=== PATIENT | male | born 1950 | race Caucasian/White ===

== ENCOUNTER → 2024-11-05 15:38 | Outpatient (REF) | payer MEDICARE, OTHER, SELFPAY | LOC: RAD 15:38 | PROVIDERS: ATTENDING PHYSICIAN Family Medicine | DX: R05.1 Acute cough (principal) | CPT/HCPCS: 71046 ==

== ENCOUNTER → 2024-12-08 14:35 | Outpatient (REF) | payer MEDICARE, OTHER, SELFPAY | LOC: RAD 14:35 | PROVIDERS: ATTENDING PHYSICIAN Specialist; FAMILY PHYSICIAN Family Medicine | DX: R31.0 Gross hematuria (principal) | CPT/HCPCS: 74178; Q9967 ==

== ENCOUNTER → 2025-01-27 16:53 | Outpatient (REF) | payer MEDICARE, OTHER, SELFPAY | LOC: RAD 16:53 | PROVIDERS: ATTENDING PHYSICIAN Family Medicine | DX: J18.9 Pneumonia, unspecified organism (principal) | CPT/HCPCS: 71046 ==

== ENCOUNTER → 2025-08-27 10:24 | Outpatient (REF) | payer MEDICARE, OTHER, SELFPAY | LOC: HWRCS 10:24 | PROVIDERS: ATTENDING PHYSICIAN Internal Medicine Cardiovascular Disease; FAMILY PHYSICIAN Family Medicine | DX: I48.92 Unspecified atrial flutter (principal) | CPT/HCPCS: 93306 ==

== ENCOUNTER 2025-08-30 18:53 | Observation (INO) | payer MEDICARE, OTHER, SELFPAY ==
[2025-08-30] VITALS (8 sets, daily range): BP systolic 128–152; BP diastolic 72–89; BMI 29.7; BMI 28.5
[2025-08-30 12:13] LABS: Hematocrit 35.7 % (39.0-52.0); Hemoglobin 12.4 g/dL (13.0-18.0); Mean Corp Hgb Conc. 34.7 g/dL (33.0-37.0); Mean Corpuscular Volume 94.9 fL (80.0-94.0); Nucleated Red Blood Cells % 0 % (-); Platelet Count 161 10^3/uL (130-400); Red Cell Dist. Width 12.6 % (11.5-14.5)
[2025-08-30 12:27] LABS: Blood Urea Nitrogen 18 mg/dl (9-20); Calcium 9.0 mg/dl (8.4-10.2); Carbon Dioxide 25 mmol/L (22-30); Chloride 104 mmol/L (98-107); Estimated Creatinine Clearance 79 ml/min; Glucose 99 mg/dl (70-99); Potassium 4.2 mmol/L (3.5-5.1); Sodium 134 mmol/L (135-145); eGFR > 60.00
--- NOTE | 2025-08-30 12:45 | ED.CVA ---
History of Present Illness
<Sunshine Carvalho PA-C - Last Filed: 08/31/25 08:07>
General
Chief Complaint: CVA/TIA Symptoms
Time Seen by Provider: 08/30/25 11:09
Onset of Stroke Symptoms
Onset of symptoms known: Yes
Date of onset of symptoms: 08/30/25
Time of onset of symptoms: 08:00
History of Present Illness
History of Present Illness:
Nelson is a 74-year-old male with past medical history of GERD, A-fib on anticoagulation due to retinal detachment on Eliquis who presents after experiencing 15 minutes of feeling like his was not connected to his body and being unable to feel self
tap his arm against the wall. Reports that loss of sensation was only from the wrist to the elbow but otherwise remained intact. Symptoms improved without any intervention after 15 minutes. Currently feels at baseline.
Past History
<Sunshine Carvalho PA-C - Last Filed: 08/31/25 08:07>
Past History
ED Past Medical History: CAD, GERD and IA
ED Past Surgical History: Cardiac, Orthopedic and Urological (Orchiectomy)
Social History
Tobacco: Former smoker
Personal:
Living: with family
Employment: Employed
Phy Exam
<Sunshine Carvalho PA-C - Last Filed: 08/31/25 08:07>
General Physical Exam
General Presentation: well appearing and no apparent distress
General Skin: warm and dry
General Habitus: normal
General Mental: alert
General Hydration: appears well hydrated
ENT Exam
ENT Exam: EOMI, pharynx normal, neck supple and normocephalic
Eye Exam
Eye Exam: PERRL, cornea clear and conjunctiva normal
Cardiovascular Exam
Cardiovascular Exam: regular rate/rhythm, no edema, no murmur and normal peripheral pulses
Pulmonary Exam
Pulmonary Exam: lungs clear, no respiratory distress, no rales, no crackles, no rhonchi, no stridor, no wheezing and no cough
Gastrointestinal Exam
Gastrointestinal Exam: normal bowel sounds, non tender, soft, no organomegaly, no pulsatile mass and non distended
Neurological Exam
Neurological Exam: alert, oriented x3, no motor deficits and speech normal
Musculoskeletal Exam
Musculoskeletal Exam: full ROM and no edema
Skin Exam
Skin Exam: normal color, warm/dry, no rash and no petechia
Psychiatric Exam
Psychiatric Exam: normal mood/affect
Scores
<Sunshine Carvalho PA-C - Last Filed: 08/31/25 08:07>
NIH Stroke Score
Level of Consciousness: 0 - Alert
LOC Questions: 0-Answers both correctly
LOC Commands: 0-Performs both correctly
Best Horizontal Gaze: 0-Normal
Visual Larsen: 0=Normal, no visual loss
Facial Palsy: 0=Normal, symmetrical
Motor - Right Arm: 0=No drift 10 seconds
Motor - Left Arm: 0=No drift 10 seconds
Motor - Right Le-No drift 5 seconds
Motor - Left Le-No drift 5 seconds
Limb Ataxia: 0-Absent
Sensation: 0-Normal
Best Language: 0-No aphasia
Dysarthria: 0-Normal
Extinction and Inattention: 0-No abnormality
NIH Total Score:: 0
<Matthew Fuller PA-C - Last Filed: 08/30/25 17:02>
NIH Stroke Score
NIH Total Score:: 0
Course
<Sunshine Carvalho PA-C - Last Filed: 08/31/25 08:07>
Orders/Labs/Results
Orders:
Orders
08/30/25 11:24
CT Head & Neck Angio W/wo IV Urgent
Comment:
Reason For Exam: ataxia prior to arrival
08/30/25 12:00
BMP [Basic Metabolic Panel] Urgent
Complete Blood Count/With Diff Urgent
08/30/25 14:56
Electrocardiogram (*1) Urgent
Reason for Study: Atrial Fibrillation
EKG- Treatment ONCE
08/30/25 16:58
Aspirin 325 mg PO NOW STA
Clopidogrel Bisulfate [Plavix] 300 mg PO NOW STA
08/30/25 18:19
Admit/Transfer Patient As Directed
Co-Sign Provider:
Level of Care: Observation services
Assign to:: Telemetry
Physician / Group: Esvin Smith
Diagnosis: decreased sensation to right arm and hand, CVA/TIA
Reason for Telemetry: CVA/TIA
Date to Stop Telemetry: 09/02/25
Time to Stop Telemetry: 11:00
PRN Pain Medication Management As Directed
May give lesser potent ordered pain med per pt: Yes
preference::
Protocol:: Medication orders for pain may be administered in a
manner that supports deferring to patient preference
when the pt is:
- Requesting an ordered lesser potent pain medication.
Least to most potent pain medications are defined
as: acetaminophen < NSAID < tramadol < opioids
(morphine, oxycodone, hydromorphone).
- Requesting a lesser dose of the same medication IF
ORDERED.
- Requesting a less intrusive route of administration
if both routes are prescribed by the provider (PO <
IV).
08/30/25 18:20
Code Status As Directed
Resuscitation Status: Full Code
08/30/25 20:44
Acetaminophen [Tylenol/Feverall] 650 mg RECTAL Q4HPRN PRN
Acetaminophen [Tylenol] 650 mg PO Q4HPRN PRN
Metoprolol [Lopressor] 100 mg PO BID
08/30/25 20:44
Case Management Consult ONCE
Case Management Consult: Discharge Planning
Comment: stroke/tia
DIETARY IP CONSULT Routine
Reason for Consult: stroke/TIA
NEUROLOGY CONSULT Urgent
Consulting Provider: Flakito Obando
Was physician already notified: Yes
Real Estate Leasing Agent Urgent
Activity As Directed
Activity Level: Ambulate
NIH Stroke Scale As Directed
Directions: Per protocol
Comment: every shift and with any change in condition or mental status
Neurological Checks As Directed
Frequency: q4h
Additional Instructions:: q4h x 24h upon admission to the floor, then qshift & with any change in condition
and mental status
Patient Education As Directed
Type: Stroke education packet
Comment: provide to patient and family
Pneumatic Compression Sleeves As Directed
Type: Knee high
Swallow Screening CVA/TIA ONLY As Directed
Comment: NPO until swallowing screening completed
If patient FAILS swallow screening:: NPO, Speech Therapy consult, Aspiration Precautions
If patient PASSES swallow screening, diet:: Cholesterol Lowering
Above diet order entered?: Yes- passed screening
Vital Signs As Directed
Frequency: Per unit guidelines
Call for:: BP greater than 180/105 mmHg or less than 100/60 mmHg
Ot Eval And Treat Routine
Pt Eval And Treat Routine
Activity Level: Ambulate
Speech Therapy Eval & Treat Routine
DX Deep Vein Thrombosis Video Routine
08/30/25 22:23
Urinalysis Routine
Date Specimen was Collected: 08/30/25
Time Specimen was Collected: 22:22
08/31/25 06:35
Cardiovascular Evaluation IN AM
08/31/25 08:00
Aspirin Chewable [Low Strength Aspirin] 81 mg PO DAILY
Clopidogrel Bisulfate [Plavix] 75 mg PO DAILY
Diltiazem Extended Release [Cardizem Cd] 120 mg PO DAILY
Rosuvastatin Calcium [Crestor] 20 mg PO DAILY
09/02/25 11:00
DC Protocol for Telemetry ONCE
Abnormal Lab Results
08/30/25
12:00
RBC 3.76 L 10^6/uL
(4.70-6.10)
Hgb 12.4 L g/dL
(13.0-18.0)
Hct 35.7 L %
(39.0-52.0)
MCV 94.9 H fL
(80.0-94.0)
MCH 33.0 H pg
(27.0-31.0)
Absolute Monos (auto) 0.8 H 10^3/uL
(0.1-0.6)
Monocytes % 13.2 H %
(1.7-9.3)
Sodium 134 L mmol/L
(135-145)
08/30/25 12:00
08/30/25 12:00
Vital Signs
Initial and Last Documented VS:
Initial Vital Signs
Temp Pulse Resp BP Pulse Ox
36.5 C 69 18 136/77 98
08/30/25 10:14 08/30/25 10:14 08/30/25 10:14 08/30/25 10:14 08/30/25 10:14
Last Documented Vital Signs
Temp Pulse Resp BP Pulse Ox
36.7 C 78 16 121/78 99
08/31/25 03:39 08/31/25 07:57 08/31/25 03:39 08/31/25 07:57 08/31/25 03:39
<Matthew Fuller PA-C - Last Filed: 08/30/25 17:02>
Orders/Labs/Results
Orders:
Orders
08/30/25 11:24
CT Head & Neck Angio W/wo IV Urgent
Comment:
Reason For Exam: ataxia prior to arrival
08/30/25 12:00
BMP [Basic Metabolic Panel] Urgent
Complete Blood Count/With Diff Urgent
08/30/25 14:56
Electrocardiogram (*1) Urgent
Reason for Study: Atrial Fibrillation
EKG- Treatment ONCE
08/30/25 16:58
Aspirin 325 mg PO NOW STA
Clopidogrel Bisulfate [Plavix] 300 mg PO NOW STA
08/30/25 18:19
Admit/Transfer Patient As Directed
Co-Sign Provider:
Level of Care: Observation services
Assign to:: Telemetry
Physician / Group: Esvin Smith
Diagnosis: decreased sensation to right arm and hand, CVA/TIA
Reason for Telemetry: CVA/TIA
Date to Stop Telemetry: 09/02/25
Time to Stop Telemetry: 11:00
PRN Pain Medication Management As Directed
May give lesser potent ordered pain med per pt: Yes
preference::
Protocol:: Medication orders for pain may be administered in a
manner that supports deferring to patient preference
when the pt is:
- Requesting an ordered lesser potent pain medication.
Least to most potent pain medications are defined
as: acetaminophen < NSAID < tramadol < opioids
(morphine, oxycodone, hydromorphone).
- Requesting a lesser dose of the same medication IF
ORDERED.
- Requesting a less intrusive route of administration
if both routes are prescribed by the provider (PO <
IV).
08/30/25 18:20
Code Status As Directed
Resuscitation Status: Full Code
08/30/25 20:44
Acetaminophen [Tylenol/Feverall] 650 mg RECTAL Q4HPRN PRN
Acetaminophen [Tylenol] 650 mg PO Q4HPRN PRN
Metoprolol [Lopressor] 100 mg PO BID
08/30/25 20:44
Case Management Consult ONCE
Case Management Consult: Discharge Planning
Comment: stroke/tia
DIETARY IP CONSULT Routine
Reason for Consult: stroke/TIA
NEUROLOGY CONSULT Urgent
Consulting Provider: Flakito Obando
Was physician already notified: Yes
Real Estate Leasing Agent Urgent
Activity As Directed
Activity Level: Ambulate
NIH Stroke Scale As Directed
Directions: Per protocol
Comment: every shift and with any change in condition or mental status
Neurological Checks As Directed
Frequency: q4h
Additional Instructions:: q4h x 24h upon admission to the floor, then qshift & with any change in condition
and mental status
Patient Education As Directed
Type: Stroke education packet
Comment: provide to patient and family
Pneumatic Compression Sleeves As Directed
Type: Knee high
Swallow Screening CVA/TIA ONLY As Directed
Comment: NPO until swallowing screening completed
If patient FAILS swallow screening:: NPO, Speech Therapy consult, Aspiration Precautions
If patient PASSES swallow screening, diet:: Cholesterol Lowering
Above diet order entered?: Yes- passed screening
Vital Signs As Directed
Frequency: Per unit guidelines
Call for:: BP greater than 180/105 mmHg or less than 100/60 mmHg
Ot Eval And Treat Routine
Pt Eval And Treat Routine
Activity Level: Ambulate
Speech Therapy Eval & Treat Routine
DX Deep Vein Thrombosis Video Routine
08/30/25 22:23
Urinalysis Routine
Date Specimen was Collected: 08/30/25
Time Specimen was Collected: 22:22
08/31/25 06:35
Cardiovascular Evaluation IN AM
08/31/25 08:00
Aspirin Chewable [Low Strength Aspirin] 81 mg PO DAILY
Clopidogrel Bisulfate [Plavix] 75 mg PO DAILY
Diltiazem Extended Release [Cardizem Cd] 120 mg PO DAILY
Rosuvastatin Calcium [Crestor] 20 mg PO DAILY
09/02/25 11:00
DC Protocol for Telemetry ONCE
Abnormal Lab Results
08/30/25
12:00
RBC 3.76 L 10^6/uL
(4.70-6.10)
Hgb 12.4 L g/dL
(13.0-18.0)
Hct 35.7 L %
(39.0-52.0)
MCV 94.9 H fL
(80.0-94.0)
MCH 33.0 H pg
(27.0-31.0)
Absolute Monos (auto) 0.8 H 10^3/uL
(0.1-0.6)
Monocytes % 13.2 H %
(1.7-9.3)
Sodium 134 L mmol/L
(135-145)
08/30/25 12:00
08/30/25 12:00
Vital Signs
Initial and Last Documented VS:
Initial Vital Signs
Temp Pulse Resp BP Pulse Ox
36.5 C 69 18 136/77 98
08/30/25 10:14 08/30/25 10:14 08/30/25 10:14 08/30/25 10:14 08/30/25 10:14
Last Documented Vital Signs
Temp Pulse Resp BP Pulse Ox
36.7 C 78 16 121/78 99
08/31/25 03:39 08/31/25 07:57 08/31/25 03:39 08/31/25 07:57 08/31/25 03:39
<Sunshine Carvalho PA-C - Last Filed: 08/31/25 08:07>
MDM/Problems Addressed
Differential Diagnosis Includes:
Patient appears well on exam. NIH 0. However given concerning history will obtain CTA head and neck to rule out any abnormality. Patient is in A-fib on the monitor with a rate of 80. CBC and BMP unremarkable. CT angio head and neck obtained and
shows no evidence of CVA or hemodynamically significant stenosis. Case discussed with neurology who will come and evaluate the patient.
Patient signed out to aquiles PA pending neurology evaluation
<Sunshine Carvalho PA-C - Last Filed: 08/31/25 08:07>
*Pulse Oximetry
SaO2: 99
Oxygen Mode of Delivery: Room air
<Matthew Fuller PA-C - Last Filed: 08/30/25 17:02>
*Radiology
Radiology exam reviewed: radiology read reviewed
*Pulse Oximetry
Patient hypoxic: no
*Critical Care Note
Total Time (30-74mins, 75-104mins- exclusive of procedures): Not Applicable
<Matthew Fuller PA-C - Last Filed: 08/30/25 17:02>
Patient Management
Discussion with other providers: Hospitalist and [employer]
Escalation/DeEscalation of care consider admission/obs:
3 PM: Patient was received in signout pending neurology evaluation and disposition planning. Neurology came to the bedside and evaluated the patient, they would like patient admitted for MRI brain and cervical spine with and without contrast as
well as aspirin and Plavix load to be given for suspected TIA. I notified the hospitalist team who will admit.
ED Attending Note
<Sunshine Carvalho PA-C - Last Filed: 08/31/25 08:07>
-
Portions of this chart may have been created with voice recognition software.� Occasional wrong word or��sound alike� substitutions may have occurred due to the inherent limitations of voice recognition software.
Discharge Plan
Departure
Patient Disposition: Admit
Date of Disposition: 08/30/25
Time of Disposition: 16:59
Presentation/result/management discussed w/ accepting MD/DO: Hospitalist
Discharge Problem:
TIA (transient ischemic attack)
Interventions
Interventions:
*General Assessment Last Done: 08/30/25 10:14
*Neglect/Abuse Screening Last Done: 08/30/25 14:40
*ED COVID-19 Vaccine History Last Done: 08/30/25 10:14
*ED Influenza Vaccine History Last Done: 08/30/25 10:14
[facility] Fall Risk Assessment Tool Last Done: 08/30/25 12:03
*Risk Screen - Suicide (C-SSRS) Last Done: 08/30/25 10:14
*Nursing Disposition Last Done: 08/30/25 21:05
ED- Pulmonary Assessment Last Done: 08/30/25 12:04
ED- Neurological Assessment Last Done: 08/30/25 13:10
ED- Cardiac Assessment Last Done: 08/30/25 12:04
ED Swallowing Screen Last Done: 08/30/25 16:52
Discharge Date and Time
Discharge Date/Time: 08/30/25 21:05
--- NOTE | 2025-08-30 15:37 | CON.NEURO4 ---
Consultation - Neurology 4
-
CONSULTING PHYSICIAN: Dr. Flakito Obando
REFERRING PHYSICIAN: Debra LLOYD
DICTATED BY: Dr. Flakito Obando
DATE/TIME OF REQUEST: 08/30/2025
DATE/TIME OF CONSULTATION: 08/30/2025
Reason for Consultation: Transient ischemic attack
ASSESSMENT AND PLAN:
Patient is a 74-year-old male with past medical history significant for ASCVD, essential hypertension, hyperlipidemia, paroxysmal atrial fibrillation (not on anticoagulation) and GERD who presented to [facility] ED for evaluation of decreased sensation of
right arm.
. CT of the head did not show any acute intracranial abnormality.
. CTA of the head did not show a large vessel occlusion.
The patient was not on any antiplatelet at home.
The patient was not a candidate for TNK as his symptoms had resolved.
The patient likely had a transient ischemic attack given the history of paroxysmal atrial fibrillation and not being on anticoagulation due to the risk of retinal attachment as per patient's . The patient is going to be on the stroke pathway
and he is going to be on aspirin 81 mg daily and Plavix 75 mg daily. The patient was given 325 mg aspirin x 1 and 300 mg of Plavix x 1. The plan is to get MRI of the brain without contrast and echocardiogram.
History of Present Illness:
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 He noted that he felt the arm/hand would not 'complete what he wanted it too.' He notified of new onset complaint and noticed that when he touched counter top with right
hand it felt 10 degrees colder than it did with the left. He denies any numbness, tingling, dizziness, vision changes, ambulatory dysfunction, slurred speech, facial droop or difficulty word finding.
Past Medical History:
ASCVD
essential hypertension
hyperlipidemia
paroxysmal atrial fibrillation
GERD
sick sinus syndrome
Hx malignant neoplasm of prostate
Review of Systems:
The 10 point review of system was negative aside from as given the above history of present illness.
Neurologic Examination:
Alert and oriented x 3
The cranial nerves II to XII are grossly intact
The speech is clear
The motor strength is grossly 5/5 bilaterally
The sensations are intact bilaterally
There is no limb ataxia seen.
Vital Signs and Labs
-
Vital Signs and Labs:
Vital Signs
Temp Pulse Resp BP Pulse Ox
36.5 C 77 22 146/85 99
08/30/25 10:14 08/30/25 18:30 08/30/25 18:30 08/30/25 18:00 08/30/25 18:15
Lab Results
08/30/25 12:00
08/30/25 12:00
Sodium 134 mmol/L (135-145) L 08/30/25 12:00
Potassium 4.2 mmol/L (3.5-5.1) 08/30/25 12:00
BUN 18 mg/dl (9-20) 08/30/25 12:00
Glucose 99 mg/dl (70-99) 08/30/25 12:00
Calcium 9.0 mg/dl (8.4-10.2) 08/30/25 12:00
Medications
-
Home Medications
�Medication �Instructions �Recorded
Selenimin 2 t PO DAILY Supplement 08/22/09
aspirin 81 mg tablet 81 mg PO DAILY Heart 08/30/25
Disease/Condition
coenzyme Q10 100 mg capsule 200 mg PO DAILY Supplement 08/30/25
diltiazem HCl 120 mg 120 mg PO DAILY 08/30/25
capsule,extended release 24 hr,
controlled
metoprolol tartrate 100 mg tablet 100 mg PO BID Blood Pressure 08/30/25
rosuvastatin 20 mg tablet 20 mg PO DAILY High Cholesterol 08/30/25
vitamin B complex 1 tab PO DAILY Supplement 08/30/25
vitamin E mixed 1,000 unit capsule 1,000 unit PO DAILY Supplement 08/30/25
[2025-08-30] MEDS: ASPIRIN 325 MG PO (17:09)
[2025-08-30] MEDS: PLAVIX 300 MG PO (17:09)
--- NOTE | 2025-08-30 17:32 | HPS.HSE ---
Family Physician
-
Family Physician: Shelia Ramirez
Chief Complaint
-
decreased sensation or right arm
History of Present Illness
Patient is a 74-year-old male with past medical history significant for ASCVD, essential hypertension, hyperlipidemia, paroxysmal atrial fibrillation and GERD who presented to [facility] ED for evaluation of decreased sensation or right arm. Patient
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 He noted that he felt the arm/hand would not 'complete what he wanted it too.' He was able to complete emptying mold sprayer with use
of hand/arm with the lack of sensation. He notified of new onset complaint and noticed that when he touched counter top with right hand it felt 10 degrees colder than it did with the left. He denies any numbness, tingling, dizziness, vision
changes, ambulatory dysfunction, slurred speech, facial droop or difficulty word finding. He notified his primary care and [employer] Merchandiser who both recommended ED for TIA workup.
Medical History
Past Medical History
Past Medical History: Reports Other
Additional Past Medical History:
ASCVD
essential hypertension
hyperlipidemia
paroxysmal atrial fibrillation
GERD
sick sinus syndrome
Hx malignant neoplasm of prostate
Past Surgical History: Reports Other
Additional Past Surgical History:
Back surgery
tonsillectomy
Testicle Partial Removal
Detached Retina
cardiac pacemaker
Social History
Tobacco: Non-smoker
Alcohol: Daily (1-2 glasses of wine )
Drug: None
Personal:
Living: With Family
Employment: Employed
Family History
Family History: Not pertinent
Allergies / Home Medications
Allergies reflects when Allergies were last updated in [facility].
Home Medications with original date entered in [facility]
Allergy/Medication List:
Allergies
Allergy/AdvReac Type Severity Reaction Status Date / Time
Sulfa (Sulfonamide Allergy Unknown Verified 08/30/25 10:18
Antibiotics)
Home Medications
Selenimin 2 t PO DAILY Supplement 08/22/09
aspirin 81 mg tablet 81 mg PO DAILY Heart Disease/Condition 08/30/25
coenzyme Q10 100 mg capsule 200 mg PO DAILY Supplement 08/30/25
diltiazem HCl 120 mg capsule,extended release 24 hr, controlled 120 mg PO DAILY 08/30/25
metoprolol tartrate 100 mg tablet 100 mg PO BID Blood Pressure 08/30/25
rosuvastatin 20 mg tablet 20 mg PO DAILY High Cholesterol 08/30/25
vitamin B complex 1 tab PO DAILY Supplement 08/30/25
vitamin E mixed 1,000 unit capsule 1,000 unit PO DAILY Supplement 08/30/25
Review of Systems
-
History Source: Patient
Constitutional: Denies Weight Gain or Chills
EENT: Denies Sore Throat
Respiratory: Denies Cough, Hemoptysis or Trouble Breathing
Cardiac: Denies Chest Pain, Diaphoresis, Palpitations or Syncope
Abdomen/GI: Denies Abdominal Pain, Nausea, Vomiting or Diarrhea
: Denies Dysuria, Frequency or Urgency
Musculoskeletal: Reports Other (decreased sensation in right arm and hand); Denies Joint Pain or Joint Swelling
Skin: Denies Rash
Neurological: Denies Dizzy, Headache, Weakness or Numbness
Physical Exam
Vital Signs
Vital Signs
Temp Pulse Resp BP Pulse Ox
97.7 F 76 10 146/88 99
08/30/25 10:14 08/30/25 16:45 08/30/25 16:45 08/30/25 16:14 08/30/25 16:45
Physical Exam
General: Well Developed, Well Nourished, No Apparent Distress, Comfortable, Conversant and Obese
HEENT: NormoCephalic, Moist mucous membranes, PERRLA, Nose Appears Normal and Ears Appear Normal
Respiratory: Clear and Non Labored Respirations; No Wheezes, Rales or Rhonchi
Cardiac: S1/S2 and Regular Rhythm; No Murmur, Rub, Gallop or Peripheral Edema
GI: Soft, Non Tender, Non Distended and Normal Bowel Sounds
Musculoskeletal: No Clubbing, No Cyanosis and No Edema
Skin: Warm and IV/Catheter Site
Neuro: Awake, AO x 3, No Motor Deficits, Nonfocal/grossly intact, Cranial Nerves Intact (II-XII) and No Sensory Deficits; No Slurred Speech, Facial Droop, Tremors or Sedated
Psych: Calm and Intact Judgment/Insight
Laboratory Results
-
08/30/25 12:00
08/30/25 12:00
Data Reviewed
-
CT Scan: Report Reviewed by me (Head/Neck CTA: Bilateral nonhemodynamically significant internal carotid atherosclerotic narrowing. No findings to suggest internal carotid artery or vertebral artery dissection bilaterally. No significant proximal
intracranial arterial stenosis bilaterally.)
Lab Data: Labs Reviewed by me
Impression/Plan
-
IMPRESSION/PLAN:
#decreased sensation to right arm and hand 2/2 CVA/TIA vs. injury
acute onset of inability to sense right arm and hand
labs unremarkable
EKG: ATRIAL FLUTTER WITH VARIABLE A-V BLOCK WITH OCCASIONAL ventricular-paced complexes AND WITH PREMATURE VENTRICULAR OR ABERRANTLY CONDUCTED COMPLEXES
CANNOT RULE OUT INFERIOR INFARCT , AGE UNDETERMINED
Head/Neck CTA: Bilateral nonhemodynamically significant internal carotid atherosclerotic narrowing.
No findings to suggest internal carotid artery or vertebral artery dissection bilaterally.
No significant proximal intracranial arterial stenosis bilaterally.
- Admit to telemetry for observation
- Consult Neurology
- MRI brain and c-spine w/ and w/out contrast per Neurology
- NIH and neurochecks per protocol
#ASCVD
- continue aspirin
#essential hypertension
- continue metoprolol
#hyperlipidemia
- continue rosuvastatin
#paroxysmal atrial fibrillation
- continue diltiazem and metoprolol
- continue Eliquis
#sick sinus syndrome
s/p pacemaker
#Hx malignant neoplasm of prostate
s/p radiation
Code status: Full code
DVT prophylaxis: SCDs
--- NOTE | 2025-08-30 18:03 | W.PN.UPDATE ---
Update Note
Progress Note Update
This note serves as an addendum to the H&P by radio broadcaster Lelo Allan
HPI
74F HX Prx AF, on ASA, no longer on Eliquis due to retinal detachment
- seen at ER for experiencing 15 minutes of feeling like his was not connected to his body and being unable to feel self tap his arm against the wall.
- loss of sensation was only from the wrist to the elbow but otherwise remained intact.
- Symptoms improved without any intervention after 15 minutes.
- Currently feels at baseline.
Relevant VS
Temp Pulse Resp BP Pulse Ox
97.7 F 76 10 146/88 99
08/30/25 10:14 08/30/25 16:45 08/30/25 16:45 08/30/25 16:14 08/30/25 16:45
PE
Gen: NAD
HEENT: symmetric face , war coorective glass , fluent speech
Neck: supple
Lungs: CTA
Cor: irregular
Abdomen:�beneign
SENIOR INFRASTRUCTURE ENGINEER: NFND
MS: no edema
Relevant data�
08/30/25
12:00
WBC 6.4
Hgb 12.4 L
Plt Count 161
Sodium 134 L
BUN 18
Creatinine 0.9
eGFR > 60.00
H & N CTA
Bilateral nonhemodynamically significant internal carotid atherosclerotic narrowing.
No findings to suggest internal carotid artery or vertebral artery dissection bilaterally.
No significant proximal intracranial arterial stenosis bilaterally.
NO Prior hospitalist admission:
ASSESSMENT & PLAN
Pending Rx reconciliation
Subjective functional loss Rt Hand descibed as Rt chioma is not doing waht he wants to d but he did not drop objects
transient RUE weakness and inability to ROM.
R hand dominant
- s/p DAPL at ER - will cont
- MRI Brain and Cervical spine with and without contrast. ( has PPM)
- Neuro consulted
Persistent A Flutter
PPM implant
- await MRI alyssa for PPM compatibility
- cannot have Eliquis to Lt eye retina detachment
- on Metoprolol and Diltiazem
DVT Px: SCD
Full code
OBS TLM
[2025-08-30] MEDS: LOPRESSOR 100 MG PO (21:35)
[2025-08-30 22:31] LABS: Urine Character Clear (Clear)
[2025-08-30 22:37] LABS: INR 1.24; PT 15.7 Sec (11.4-14.6)
[2025-08-30 22:40] LABS: APTT 28.3 Sec (23.4-35.0)
[2025-08-30 22:54] LABS: Troponin I < 0.012 ng/ml
[2025-08-31 03:39] VITALS: BP 130/79
[2025-08-31 07:00] VITALS: BP 121/78
[2025-08-31 07:51] LABS: HDL Cholesterol 47 mg/dl; LDL Cholesterol, Calculated 54 mg/dl; Very Low Density Lipoprotein 22 mg/dl (0-30)
[2025-08-31] MEDS: CRESTOR 20 MG PO (07:57)
[2025-08-31] MEDS: LOW STRENGTH ASPIRIN 81 MG PO (07:57)
[2025-08-31] MEDS: CARDIZEM CD 120 MG PO (07:57)
[2025-08-31] MEDS: LOPRESSOR 100 MG PO (07:57)
[2025-08-31 08:51] LABS: Glycohemoglobin (HgbA1c) 5.9 % (4.0-5.9)
--- NOTE | 2025-08-31 08:53 | PTOTSP ---
Speech Therapy Evaluation:
Pt with acute risk factor for dysphagia including concern for TIA/CVA, however oropharyngeal swallow appeared functional at bedside. No overt s/sx of aspiration, WBC WNL, pt on room air, passed 3oz swallow screen, and without dysphagia hx.
Recommend:
1. Cont. regular solids and thin liquids
2. Meds as tolerated
3. General aspiration and reflux precautions
4. ENGINEER AUTOMATED EQUIPMENT to follow, pending results of MRI to determine if further intervention warranted
--- NOTE | 2025-08-31 09:54 | W.PN.NEURO.1 ---
Addendum entered and electronically signed by Flakito Obando MD 08/31/25 16:51:
The patient was seen and examined along with the nurse practitioner Lula Hart and I agree with her assessment and management plan. Given below is my addendum.
The patient likely had a transient ischemic attack, given the history of paroxysmal atrial fibrillation and not being on anticoagulation due to the risk of retinal detachment as per patient's . The patient is going to be on aspirin 81 mg daily.
The patient refused to take Plavix and he does not want to be on anticoagulation also.
. MRI of the brain does not show any acute infarct.
The patient is refusing to take Plavix and also he does not want to be on anticoagulation because he thinks that it will increase the risk of retinal detachment that he has had in the past.
The patient is recommended to see a prisoner classification interviewer for the Watchman device procedure.
Neurologically the patient is well.
The patient likely had a TIA.
He will go home on aspirin 81 mg daily.
Rosuvastatin 20 mg daily.
Follow-up in neurology clinic in 4 weeks.
I discussed the patient's assessment and plan with the patient and his , and they verbalized understanding of our discussion.
Discussed with Dr. River Valencia.
Original Note:
Today's Communication / Plan
-
-check MRI brain without contrast to evaluate for stroke
-check MRI cervical spine
-patient refusing anticoagulation and plavix, continue aspirin for now, if MRI shows new stroke will need anticoagulation
-goal LDL <70, current LDL 54 continue rosuvastatin 20 mg daily
-PT/OT/ST evaluations
-DVT prophylaxis
-continue neurochecks and NIHSS per unit guidelines
-stroke education packet
Neuro Assessment/Plan
Assessment
Patient is a 74-year-old male with past medical history significant for ASCVD, essential hypertension, hyperlipidemia, paroxysmal atrial fibrillation (not on anticoagulation) and GERD who presented to [facility] ED for evaluation of decreased sensation of
right arm.
Head/neck CTA 08/30/2025: Bilateral nonhemodynamically significant internal carotid atherosclerotic narrowing. No findings to suggest internal carotid artery or vertebral artery dissection bilaterally. No significant proximal intracranial arterial
stenosis bilaterally.
Labs: Hgb A1C 5.9, LDL 54
Plan
-check MRI brain without contrast to evaluate for stroke
-check MRI cervical spine
-patient refusing anticoagulation and plavix, continue aspirin for now, if MRI shows new stroke will need anticoagulation
-goal LDL <70, current LDL 54 continue rosuvastatin 20 mg daily
-PT/OT/ST evaluations
-DVT prophylaxis
-continue neurochecks and NIHSS per unit guidelines
-stroke education packet
All questions encouraged and answered, plan of care discussed with Dr. Obando and patient
Subjective/Objective
Subjective Data
Date of Service: August 31, 2025
No acute overnight events. Patient refusing Plavix.
Objective Data
Vital Signs
Temp Pulse Resp BP Pulse Ox
98 F 78 16 121/78 97
08/31/25 07:00 08/31/25 07:57 08/31/25 07:00 08/31/25 07:57 08/31/25 07:00
Lab Results
08/30/25 12:00
08/30/25 12:00
PT 15.7 Sec (11.4-14.6) H 08/30/25 22:21
INR 1.24 08/30/25 22:21
APTT 28.3 Sec (23.4-35.0) 08/30/25 22:21
Sodium 134 mmol/L (135-145) L 08/30/25 12:00
Potassium 4.2 mmol/L (3.5-5.1) 08/30/25 12:00
BUN 18 mg/dl (9-20) 08/30/25 12:00
Glucose 99 mg/dl (70-99) 08/30/25 12:00
Calcium 9.0 mg/dl (8.4-10.2) 08/30/25 12:00
LDL Cholesterol, Calc 54 mg/dl 08/31/25 06:35
Patient Allergies
Sulfa (Sulfonamide Antibiotics) Allergy (Verified 08/30/25 10:18)
Unknown
Physical Exam
-
General: Comfortable and Appears Stated Age
HEENT: Normocephalic and Atraumatic
Neck: Full Range of Motion
Respiratory: No Dyspnea
Cardiac: No JVD
GI: Non-distended
Skin: Unremarkable
Extremities: No Clubbing, No Cyanosis and No Edema
Psych: Negative Intact Judgement/Insight
Extended Neurological Exam
Attention Span & Concentration: Awake, Alert, Interactive and No Difficulty with 2 Step Request
Memory: Unremarkable
Involuntary Movement: None
Speech: Quality Unremarkable, Quantity Unremarkable and Rate of Production Unremarkable
Cranial Nerve VII: Facial Symmetry: Normal Facial Symmetry
Cranial Nerve VIII: Hearing: Unremarkable Hearing to Normal Conversational Volume
Muscle Strength, Overall: Full Throughout
Pronator Drift: No Drift in Upper Extremities and No Drift in Lower Extremities
Data Reviewed
-
CT-A: Report Reviewed and Image Reviewed
CT Head: Report Reviewed and Image Reviewed
MRI Head: Ordered
MRI Cervical Spine: Ordered
Medical Test Reports: Report Reviewed
Labs: Report Reviewed
Lipid Profile: Report Reviewed
HgbA1C: Report Reviewed
Reviewed with: Physician and Patient
Old Records: Summarized
[2025-08-31 10:04] VITALS: BP 137/87; PULSE 82; O2SAT 98
[2025-08-31 10:16] VITALS: BP 137/87; PULSE 81; O2SAT 98
[2025-08-31 11:00] VITALS: BP 134/87
--- NOTE | 2025-08-31 14:13 | W.PN.HOSP.TC ---
Today's Communication/Plan
-
See plan
Assessment / Plan
Assessment / Plan
Impression
74 years old male with paroxysmal atrial fibrillation not on anticoagulation presented with self-limited episode of right upper extremity weakness, neglect.
Concern for TIA versus CVA.
Conditions prior to admission
Paroxysmal atrial fibrillation
Not on anticoagulation with prior history of retinal detachment while on antiplatelet therapy for CAD
Sick sinus syndrome status post pacer
CAD with history of lateral [place]
Ischemic cardiomyopathy with recovered EF
Dyslipidemia
Prostate cancer,
Imaging
Head and neck CTA
Bilateral nonhemodynamically significant internal carotid atherosclerotic narrowing.
No findings to suggest internal carotid artery or vertebral artery dissection bilaterally.
No significant proximal intracranial arterial stenosis bilaterally.
Plan
Concern for TIA or evolving CVA well patient presents with self-limited episode of right upper extremity paresthesia, weakness and neglect.
Reported mild motor and expressive aphasia while on the floor, currently resolved
Concern for embolic CVA likely left MCA territory
MRI pending
Echo pending
LDL 54 while on statin
Hemoglobin A1c 5.9
Normotensive
Recommended DAPT, although declining given prior history of retinal detachment while on antiplatelet therapy for CAD
CAD # ischemic cardiomyopathy with recovered EF
Outpatient regimen including aspirin, metoprolol, rosuvastatin
Paroxysmal atrial fibrillation
Sick sinus syndrome status post pacer.
Rate control: Diltiazem, metoprolol
[id number] 6 (CHF, hypertension, TIA/CVA, vascular disease with history of [place], age). Discussion in terms of anticoagulation risk and benefits. Patient concern of recurrent retinal detachment. Had never been anticoagulated with dark. Recurrent
retinal detachment documented while on antiplatelet therapy.
Anticipated Discharge: 24 - 48 hours
Subjective/Interval History
-
Date of Service: August 31, 2025
Objective Data
-
Vital Signs:
Vital Signs
Temp Pulse Resp BP Pulse Ox
97.3 F 79 16 134/87 97
08/31/25 11:00 08/31/25 11:00 08/31/25 11:00 08/31/25 11:00 08/31/25 11:00
I&O
08/30/25 08/31/25 09/01/25
06:59 06:59 06:59
Intake Total 480 / 480 660 / 660
Output Total 900 / 900 275 / 275
Balance -420 / -420 385 / 385
Physical Exam
-
General: Well Developed and No Apparent Distress
HEENT: Normocephalic, Atraumatic and Moist Mucous Membranes
Respiratory: Clear to Auscultation
Cardiac: Regular Rhythm and S1/S2; Negative Murmur, Rub or Gallop
GI: Soft, Nontender, Nondistended and Normal Bowel Sounds; Negative Organomegaly
Rectal: Deferred by Provider
Musculoskeletal: No Clubbing, No Cyanosis and No Edema
Skin: Negative Rash
Neuro: Nonfocal/Grossly Intact
[2025-08-31 15:08] VITALS: BP 141/82
--- NOTE | 2025-08-31 15:31 | CM ---
Alert awake oriented patient who lives with his Jesica in a 2 story home with 1 step to enter and 12 steps to bed and bathroom.Pt are testing spoke with at bedside. He is independent in driving and in all activities of daily
living.Offered VN she declined need.His will drive him home.
Andrade letter explained to Copy given . Pts declined to sign .
VN hx / No SNF history
Pharmacy [facility]
PCP DR Ramirez
PLAN Home Declined VN
--- NOTE | 2025-08-31 16:34 | W.DCSUMMARY ---
Discharge Summary
Discharge Data
Date of Admission: 08/30/25
Date of Discharge: 08/31/25
-
Pending Results: No
Hospital Course
Impression
74 years old male with paroxysmal atrial fibrillation not on anticoagulation presented with self-limited episode of right upper extremity weakness, neglect.
Concern for TIA versus CVA.
Conditions prior to admission
Paroxysmal atrial fibrillation
Not on anticoagulation with prior history of retinal detachment while on antiplatelet therapy for CAD
Sick sinus syndrome status post pacer
CAD with history of lateral [place]
Ischemic cardiomyopathy with recovered EF
Dyslipidemia
Prostate cancer,
Imaging
Head and neck CTA
Bilateral nonhemodynamically significant internal carotid atherosclerotic narrowing.
No findings to suggest internal carotid artery or vertebral artery dissection bilaterally.
No significant proximal intracranial arterial stenosis bilaterally.
Plan
Concern for TIA or evolving CVA well patient presents with self-limited episode of right upper extremity paresthesia, weakness and neglect.
Reported mild motor and expressive aphasia while on the floor, currently resolved
Concern for embolic CVA likely left MCA territory
MRI of the brain showed no evidence for acute CVA.
MRI of the cervical spine without relevant findings to given clinical presentation
LDL 54 while on statin
Hemoglobin A1c 5.9
Normotensive
Recommended DAPT, although declining given prior history of retinal detachment while on antiplatelet therapy for CAD
CAD # ischemic cardiomyopathy with recovered EF
Outpatient regimen including aspirin, metoprolol, rosuvastatin
Paroxysmal atrial fibrillation
Sick sinus syndrome status post pacer.
Rate control: Diltiazem, metoprolol
[id number] 6 (CHF, hypertension, TIA/CVA, vascular disease with history of [place], age). Discussion in terms of anticoagulation risk and benefits. Patient concern of recurrent retinal detachment. Had never been anticoagulated with dark. Recurrent
retinal detachment documented while on antiplatelet therapy. Patient commended to follow-up with primary cardiology and consideration of systemic anticoagulation for thromboprophylaxis versus watchman placement.
Discharge Plan
-
Patient Disposition: Home (Routine Discharge)
Discharge Diagnosis/Procedures: TIA
Condition: Good
Diet: Low Cholesterol
Referrals:
Shelia Ramirez DO [Family Provider, [facility]]
Prescriptions:
Continued
Selenimin
2 t PO DAILY
metoprolol tartrate 100 mg tablet
100 mg PO BID
diltiazem HCl 120 mg capsule,ext.rel 24h degradable
120 mg PO DAILY
aspirin 81 mg Tablet
81 mg PO DAILY
rosuvastatin 20 mg tablet
20 mg PO DAILY
coenzyme Q10 100 mg Capsule
200 mg PO DAILY
vitamin B complex Tablet
1 tab PO DAILY
vitamin E mixed 1,000 unit Capsule
1,000 unit PO DAILY
Discharge Orders:
Discharge Patient (As Directed); Ordered 08/31/25
Ordered By: River Valencia
Discharge Date and Time
Print Language: ITALIAN
== END 2025-08-31 17:32 | disposition home or self-care (01) ==
LOC: 4 EAST ACU 18:53
PROVIDERS: Nurse Practitioner Family; Surgery Trauma Surgery; ADMITTING PHYSICIAN Internal Medicine; ATTENDING PHYSICIAN Internal Medicine; CONSULT PHYSICIAN Psychiatry & Neurology Neurology; EMERGENCY PHYSICIAN Emergency Medicine; FAMILY PHYSICIAN Family Medicine
DX: R53.1 Weakness (principal); R20.2 Paresthesia of skin; R47.01 Aphasia; I48.0 Paroxysmal atrial fibrillation; I25.10 Atherosclerotic heart disease of native coronary artery without angina pectoris; I49.5 Sick sinus syndrome; I25.5 Ischemic cardiomyopathy; E78.5 Hyperlipidemia, unspecified; I10 Essential (primary) hypertension; K21.9 Gastro-esophageal reflux disease without esophagitis; I48.92 Unspecified atrial flutter; I25.2 Old myocardial infarction; Z95.0 Presence of cardiac pacemaker; Z92.3 Personal history of irradiation; Z87.891 Personal history of nicotine dependence; Z79.82 Long term (current) use of aspirin
CPT/HCPCS: 70496; 70498; 70553; 72156; 80048; 80061; 81003; 83036; 84484; 85025; 85610; 85652; 85730; 92610; 93005; 97110; 97162; 97166; 99285; 99406; A9575; G0378; Q9967